=== PATIENT | female | born 1960 | race Two or more races ===

== ENCOUNTER → 2019-07-07 | Day surgery (SDC) | payer OTHER ==
[~2019-07-07] MED LIST: IV RINGERS,LACTATED 1000ML 1,000 ML IV ONE; LIDOCAINE 2% PF 5 ML VIAL. ONE; PROPOFOL 40 ML IV ONE; RANI150C PO
[2019-07-07 11:25] VITALS: BP 138/67
--- NOTE | 2019-07-08 14:06 | PATHOLOGY ---
[facility] Accession Number: [id number] . 01 Material submitted: . PART A: small bowel - SMALL BOWEL BX PART B: stomach - GASTRIC ANTRUM AND BODY BX PART C: esophagus - DISTAL ESOPHAGUS BX. Modifiers: distal . 01 Clinical history: . Reflux, screening . 02 Diagnosis: A. Small bowel biopsy: - No significant pathologic abnormalities. . B. Gastric biopsies, gastric antrum and gastric body: - Consistent with reactive gastropathy. . C. Esophageal biopsies, distal esophagus: - Segments of hyperplastic squamous esophageal mucosa with focally contiguous and separate segments of gastric mucosa showing chronic inflammation and focal pancreatic metaplasia, consistent with reflux esophagitis. (JPM:pit 07/08/2019) [facility] 07/08/2019 1342 Local . 02 Comment: Sections of the small bowel biopsy reveal segments of duodenal and small intestine mucosa. Where best oriented, the mucosal villi show no sprue-like changes or significant inflammatory changes. . Sections of the gastric biopsy reveal segments of gastric antral and antral/body transition mucosa showing congestion, foveolar hyperplasia, and only slight chronic inflammation. A properly controlled immunoperoxidase stain for Helicobacter is negative for Helicobacter organisms. The findings are consistent with a reactive gastropathy. . Sections of the distal esophageal biopsy reveal segments of focally tangentially oriented, hyperplastic squamous esophageal mucosa with focally contiguous and separate segments of gastric mucosa showing chronic inflammation and focal pancreatic metaplasia. The findings are consistent with reflux esophagitis. There is no evidence of Johns's change, dysplasia or malignancy. (JPM:pit 07/08/2019) . Special stain performed: Immunoperoxidase stain for Helicobacter on B1. . 02 Electronically signed: . Yusuf Blankenship MD, Pathologist NPI- [id number] . 01 Gross description: . A. Received in formalin labeled "Herreraruiz, Jayshree, small bowel BX," are 3 segments of parekh soft tissue measuring 1.0 x 0.9 x 0.3 cm in aggregate dimensions and ranging from 0.3 to 0.5 cm in maximum dimension. The specimen is submitted entirely in cassette A1. . B. Received in formalin labeled "Herreraruiz, Jayshree, gastric antrum and body BX," are 3 segments of parekh soft tissue measuring 0.8 x 0.8 x 0.3 cm in aggregate dimensions and ranging from 0.3 to 0.6 cm in maximum dimension. The specimen is submitted entirely in cassette B1. . C. Received in formalin labeled "Herreraruiz, Jayshree, distal esophagus BX," are 4 segments of parekh soft tissue measuring 1.3 x 0.8 x 0.3 cm in aggregate dimensions and ranging from 0.4 to 0.5 cm in maximum dimension. The specimen is submitted entirely in cassette C1. (TSD; 07/07/2019) TOB/TOB 07/08/2019 [facility] Local . 02 Pathologist provided ICD-10: K31.9, K21.0, Z12.11 . 02 CPT . 938529, 018536, 088738, [id number] Specimen Comment: A courtesy copy of this report has been sent to Specimen Comment: [phone], . Specimen Comment: Report sent to / DR HARRY Specimen Comment: A duplicate report has been generated due to demographic updates. Performed at: 01 [facility] [address], [place], [place] [id number] MD Donnell Masters MD Phone: [phone] Performed at: 02 [facility] [address], [place] [id number] MD Yusuf Blankenship MD Phone: [phone]
== END | disposition home or self-care (01) ==
LOC: SURG 09:36
PROVIDERS: ATTEND Internal Medicine Gastroenterology
DX: Z12.11 Encounter for screening for malignant neoplasm of colon (principal); K64.8 Other hemorrhoids; K57.30 Diverticulosis of large intestine without perforation or abscess without bleeding; K21.0 Gastro-esophageal reflux disease with esophagitis; K44.9 Diaphragmatic hernia without obstruction or gangrene; K63.89 Other specified diseases of intestine; E66.9 Obesity, unspecified; I10 Essential (primary) hypertension; E78.5 Hyperlipidemia, unspecified; Z68.41 Body mass index [BMI] 40.0-44.9, adult
CPT/HCPCS: 43239; 45378; 88305; 88342; J2001; J2704